=== PATIENT | male | born 1995 | race Caucasian/White ===

== ENCOUNTER 2019-04-11 07:00 | Emergency (ER) | payer MEDICAID ==
[~2019-04-11] VITALS: Ht 177.8 cm; Wt 110.0 kg
[2019-04-11] MEDS ORDERED: MECLIZINE 25MG TABLET PO ONE (07:30)
[2019-04-11] MEDS ORDERED: ONDANSETRON HCL 4MG TABLET PO ONE (07:30)
[2019-04-11 09:58] VITALS: BP 130/61
== END 2019-04-11 10:08 | disposition home or self-care (01) ==
LOC: ER 07:00
DX: H61.21 Impacted cerumen, right ear (principal); R42 Dizziness and giddiness; J45.909 Unspecified asthma, uncomplicated
CPT/HCPCS: 99283; J8597; Q0162; Z7610